=== PATIENT | female | born 1990 | race Caucasian/White ===

== ENCOUNTER 2017-07-20 22:01 | Emergency (ER) | payer MEDICAID ==
[~2017-07-20] VITALS: Ht 162.6 cm; Wt 61.0 kg
[2017-07-20 22:43] VITALS: BP 108/73
[2017-07-20 23:04] LABS: CLARITY URINE CLOUDY (CLEAR); COLOR URINE YELLOW (YELLOW); GLUCOSE URINE NEGATIVE (NEGATIVE); KETONES URINE NEGATIVE (NEGATIVE); LEUKOCYTE ESTERASE URINE 1+ (NEGATIVE); NITRITE URINE NEGATIVE (NEGATIVE); OCCULT BLOOD URINE NEGATIVE (NEGATIVE); PH URINE 6.5 (4.5-8.0); PROTEIN URINE NEGATIVE (NEGATIVE); SPECIFIC GRAVITY URINE 1.028 (1.005-1.030)
== END 2017-07-21 01:06 | disposition left against medical advice (07) ==
LOC: ER 22:01
DX: R10.9 Unspecified abdominal pain (principal); Z53.21 Procedure and treatment not carried out due to patient leaving prior to being seen by health care provider
CPT/HCPCS: 81001; 81025

== ENCOUNTER 2019-05-30 21:57 | Emergency (ER) | payer MEDICAID ==
[~2019-05-30] VITALS: Ht 162.6 cm; Wt 63.0 kg
[2019-05-30 22:09] VITALS: BP 105/66
[2019-05-30 23:17] LABS: CLARITY URINE CLEAR (CLEAR); COLOR URINE YELLOW (YELLOW); KETONES URINE NEGATIVE (NEGATIVE); LEUKOCYTE ESTERASE URINE 2+ (NEGATIVE); NITRITE URINE NEGATIVE (NEGATIVE); OCCULT BLOOD URINE NEGATIVE (NEGATIVE); PH URINE 6.5 (4.5-8.0); PROTEIN URINE NEGATIVE (NEGATIVE)
== END 2019-05-31 00:02 | disposition left against medical advice (07) ==
LOC: ER 21:57
DX: R51 Headache (principal); Z53.21 Procedure and treatment not carried out due to patient leaving prior to being seen by health care provider
CPT/HCPCS: 81003; 81025

== ENCOUNTER 2019-08-15 15:38 | Emergency (ER) | payer MEDICAID ==
[~2019-08-15] VITALS: Ht 167.6 cm; Wt 62.0 kg
[2019-08-15 16:01] VITALS: BP 108/54
[2019-08-15] MEDS ORDERED: TETANUS, DIPHTHERIA, PERTUSSIS VAC/PF 0.5ML (>7YR OLD) IM ONE (16:15)
[2019-08-15] MEDS ORDERED: KETOROLAC 30MG/ML VIAL IM ONE (16:15)
[2019-08-15] MEDS ORDERED: BACITRACIN ZINC OINT UDPKT TOP ONE (16:15)
[2019-08-15] MEDS ORDERED: LIDOCAINE HCL/PF 1% 10 MG/ML 5ML VIAL IJ ONE (16:15)
[2019-08-15] MEDS ORDERED: HYDROCODONE/ACETAMINOPHEN 5/325MG TABLET PO ONE (16:15)
== END 2019-08-15 17:19 | disposition home or self-care (01) ==
LOC: ER 15:38
DX: S61.211A Laceration without foreign body of left index finger without damage to nail, initial encounter (principal); W26.0XXA Contact with knife, initial encounter; Y93.89 Activity, other specified; Y92.010 Kitchen of single-family (private) house as the place of occurrence of the external cause
CPT/HCPCS: 12001; 73140; 90471; 90715; 96372; 99283; J1885; J3490; Z7610

== ENCOUNTER 2022-01-12 09:17 | Emergency (ER) | payer MEDICAID ==
[~2022-01-12] VITALS: Ht 165.1 cm; Wt 71.4 kg
[2022-01-12 10:35] LABS: CLARITY URINE CLEAR (CLEAR); COLOR URINE YELLOW (YELLOW); KETONES URINE NEGATIVE (NEGATIVE); LEUKOCYTE ESTERASE URINE 1+ (NEGATIVE); NITRITE URINE NEGATIVE (NEGATIVE); OCCULT BLOOD URINE NEGATIVE (NEGATIVE); PROTEIN URINE 1+ (NEGATIVE); SPECIFIC GRAVITY URINE 1.022 (1.005-1.030); UROBILINOGEN URINE 0.2 E.U./dL (0.2-1.0)
[2022-01-12 10:39] LABS: UCG SCREEN NEGATIVE
[2022-01-12] MEDS ORDERED: IBUP-2028 MT (11:10)
[2022-01-12] MEDS ORDERED: CEPH500C2 MT (11:10)
[2022-01-12 11:21] VITALS: BP 122/76
== END 2022-01-12 11:21 | disposition home or self-care (01) ==
LOC: ER 09:17
DX: N39.0 Urinary tract infection, site not specified (principal)
CPT/HCPCS: 81003; 81025; 99283

== ENCOUNTER 2022-08-11 16:14 | Emergency (ER) | payer MEDICAID ==
[~2022-08-11] VITALS: Ht 167.6 cm; Wt 80.0 kg
[~2022-08-11 16:14] MED LIST: CEPH500C2 MT; IBUP-2028 MT
[2022-08-11 16:25] VITALS: BP 115/72
[2022-08-11] MEDS ORDERED: IBUP-2029 MT (17:34)
[2022-08-11] MEDS ORDERED: BACITRACIN ZINC OINT UDPKT TOP ONE (17:45)
== END 2022-08-11 17:54 | disposition home or self-care (01) ==
LOC: ER 16:14
DX: S61.216A Laceration without foreign body of right little finger without damage to nail, initial encounter (principal); W25.XXXA Contact with sharp glass, initial encounter; Y93.89 Activity, other specified; Y92.511 Restaurant or cafe as the place of occurrence of the external cause; Y99.8 Other external cause status
CPT/HCPCS: 73130; 99283

== ENCOUNTER 2023-01-18 09:58 | Emergency (ER) | payer MEDICAID ==
[~2023-01-18] VITALS: Ht 162.6 cm; Wt 61.0 kg
[~2023-01-18 09:58] MED LIST changes: +IBUP-2029 MT
[2023-01-18] MEDS ORDERED: IBUPROFEN 600MG TABLET PO STA (10:34)
[2023-01-18 10:53] VITALS: BP 136/90
[2023-01-18 12:24] LABS: CLARITY URINE CLEAR (CLEAR); COLOR URINE YELLOW (YELLOW); KETONES URINE NEGATIVE (NEGATIVE); LEUKOCYTE ESTERASE URINE TRACE (NEGATIVE); NITRITE URINE NEGATIVE (NEGATIVE); OCCULT BLOOD URINE TRACE (NEGATIVE); PROTEIN URINE NEGATIVE (NEGATIVE); SPECIFIC GRAVITY URINE 1.017 (1.005-1.030); UROBILINOGEN URINE 0.2 E.U./dL (0.2-1.0)
[2023-01-18] MEDS ORDERED: NITR100C MT (12:34)
[2023-01-18] MEDS ORDERED: NAPR-681 PO (12:34)
== END 2023-01-18 12:43 | disposition home or self-care (01) ==
LOC: ER 09:58
DX: N39.0 Urinary tract infection, site not specified (principal)
CPT/HCPCS: 81003; 81025; 99283